=== PATIENT | male | born 1970 | race Two or more races ===

== ENCOUNTER 2017-07-28 06:10 | Day surgery (SDC) | payer MEDICARE, MEDICAID ==
[2017-07-24 11:07] LABS: BASOPHILS % (AUTO) 1.4 % (0.0-2.0); EOSINOPHILS % (AUTO) 4.4 % (0.0-3.0); HEMATOCRIT 39.4 % (42.0-52.0); HEMOGLOBIN 12.8 G/DL (14.2-18.0); MEAN CORPUSCULAR VOLUME 95 FL (80-99); MONOCYTES % (AUTO) 7.7 % (1.0-10.0); NEUTROPHILS % (AUTO) 62.5 % (45.0-75.0); PLATELET COUNT 326 K/UL (150-450); RED BLOOD COUNT 4.16 M/UL (4.70-6.10); WHITE BLOOD COUNT 8.8 K/UL (4.8-10.8)
[2017-07-24 11:26] LABS: ANION GAP 9 mmol/L (5-15); BLOOD UREA NITROGEN 26 mg/dL (7-18); CALCIUM 9.1 MG/DL (8.5-10.1); CARBON DIOXIDE 29 MMOL/L (21-32); CHLORIDE 98 MMOL/L (98-107); CREATININE 9.1 MG/DL (0.55-1.30); POTASSIUM 4.7 MMOL/L (3.5-5.1); SODIUM 136 MMOL/L (136-145)
--- NOTE | 2017-07-24 18:00 | Pre-op HX & Phy Repo 2 SIG ---
DATE OF ADMISSION: 07/28/2017 PRESURGICAL INTERNAL MEDICINE HISTORY AND PHYSICAL DATE OF EVALUATION: 07/24/2017 REASON FOR EVALUATION: I was asked by Dr. Galileo Manzo to see this 47-year-old male who is going for elective surgery on the left eye. The patient has a cataract left eye. Please see History and Physical by Dr. Galileo Manzo, and surgery scheduled for 07/28/2017. The patient is seen in outpatient department of [facility]. PAST MEDICAL HISTORY/REVIEW OF SYSTEMS: Remarkable for history of hypertension, insulin-dependent diabetes mellitus, and end-stage renal disease. The patient is on hemodialysis, one scheduled for tomorrow 07/25/2017. This is second visit to [facility]. He has had a cataract surgery on the right eye in February 2017. Please see old chart. The patient denies history of heart attack, chest pain, or palpitation. No history of respiratory problem. No asthma or bronchitis. Denies history of GI bleeding or heartburn. No liver problem or hepatitis. No history of thyroid problem or anemia. The patient is receiving hemodialysis for one year. PAST SURGICAL HISTORY: Remarkable for right eye cataract surgery in February 2017 and the left arm arteriovenous shunt for dialysis. FAMILY HISTORY: Mother with history of obesity, diabetes mellitus, and hypertension. ALLERGIES: Not known. MEDICATIONS: Humulin 32 units in the morning and Humalog sliding scale. Also patient takes clonidine 0.1 mg and . HABITS: Denies history of smoke. Alcohol occasionally. No street drugs. PHYSICAL EXAMINATION: GENERAL: Alert, well-developed, well-nourished male in his the 40s, no acute distress. VITAL SIGNS: Blood pressure 156/89, temperature 97, pulse 89, respirations 18, and O2 saturation 100% on room air. SKIN: No rashes. Heavy tattoo on chest and back. LYMPHATIC: Lymph nodes not enlarged. No diaphoresis. HEENT: Head, normocephalic. Baldness. Ears, clear. No discharge. Eyes, full description per Dr. Galileo Manzo. Mouth, clear and moist. No dentures. No discharge. No ulcer. NECK: Supple. No jugular vein distention. Carotids artery +2. Trachea midline. CHEST: No deformity or asymmetry. LUNGS: Clear to auscultation and percussion. No rales or rhonchi. HEART: Sinus rhythm. No ectopy. No murmur. No S3, S4. ABDOMEN: Soft, benign. Liver and spleen are not enlarged. No rebound. EXTREMITIES: No peripheral edema. Left forearm AV shunt. No calf tenderness. No varicose vein. ABDOMEN: Soft, benign. Liver and spleen not enlarged. No palpable mass. GENITOURINARY: The patient is on hemodialysis. CVA nontender. NERVOUS SYSTEM: No asymmetry. No tremor. No nystagmus. LABORATORY AND DIAGNOSTIC DATA: Electrocardiogram done today shows a normal sinus rhythm, 86 per minute, normal ECG. The patient advised to be NPO after midnight Friday to Friday. Laboratory done today 07/24/2017 shows red blood cells 4.34 million, hemoglobin 12.3, hematocrit 39.4. Chemistry, sodium 136, potassium of 4.7 chloride 98, CO2 20, blood sugar 126, and calcium 9.3. IMPRESSION: 1. Cataract, left eye. 2. Hypertension. 3. Insulin-dependent diabetes mellitus, controlled. 4. End-stage renal disease, on hemodialysis. 5. Mild anemia. PLAN: Cataract extraction, left eye with intraocular lens implant per Dr. Galileo Manzo on 07/28/2017. CONCLUSION: The patient is a 47-year-old male with multiple medical problems including insulin-dependent diabetes mellitus, hypertension, and end-stage renal disease. The patient will be dialyzed tomorrow, might need to check potassium on the day of surgery. The patient advised to be NPO after midnight Friday. The patient's condition optimized for surgery. Thank you very much, Dr. Manzo, for privilege to participate in presurgical care of this interesting patient. Danni Peng M.D. DR: Connor JOB#: [id number] CC:
--- NOTE | 2017-07-25 10:44 | Pre-Procedure Note/Attestation ---
Pre-Procedure Note/Attestation Complete Prior to Procedure Planned Procedure: left Procedure Narrative: phaco with iol Indications for Procedure Pre-Operative Diagnosis: cataract Attestation I attest that I discussed the nature of the procedure; its benefits; risks and complications; and alternatives (and the risks and benefits of such alternatives ), prior to the procedure, with the patient (or the patient's legal guest service representative). I attest that, if there was a reasonable possibility of needing a blood transfusion, the patient (or the patient's legal guest service representative) was given the [facility] standardized written summary, pursuant to the [place] Blood Safety Act ([place] Health and Safety Code # 1645, as amended). I attest that I re-evaluated the patient just prior to the surgery and that there has been no change in the patient's H&P, except as documented below: EMMANUEL MARIN Jul 25, 2017 10:44
--- NOTE | 2017-07-25 10:46 | Opthalmology H&P ---
Ophthalmology H&P H&P Chief Complaint: decreased vision in left eye HPI Vision Affects Ability to: read, focus/use eyes together, manage personal affairs HPI Narrative blurry vision Exam Visual Acuity: OD: 20/30 OS: 20/200 Tension: OD: 18 Os: 14 Eye Exam: normal OU: external exam, palpebral fissure-width, marginal reflex distance, levator function, corneas, anterior chambers, fundus exam, findings: lens - OD: iol OS: psc Assessment/Plan Diagnosis: (1) Posterior subcapsular cataract, left eye Attestation Attestation The risks and benefits of the surgery as well as alternative procedures were explained to the patient in detail. EMMANUEL MARIN Jul 25, 2017 10:46
[2017-07-28] VITALS (8 sets, daily range): BP systolic 153–163; BP diastolic 84–95
[~2017-07-28] VITALS: Ht 180.3 cm; Wt 99.8 kg
[~2017-07-28 06:10] MED LIST: AMLODIPINE BESY10 MG ORAL; CLONIDINE HCL0.1 MG PO; HUMALOG100 UNIT/4 SUBQ; LANTUS SOL100 UNIT/1 SUBQ; RENVELA800 MG ORAL
[2017-07-28] MEDS ORDERED: Dexamethasone 4mg/ml vial ONE (07:00)
[2017-07-28] MEDS ORDERED: Pred Forte 1% Opth Susp 1ml ONE (07:00)
[2017-07-28] MEDS ORDERED: Sterile Water 10ml Vial ONE (07:00)
[2017-07-28] MEDS ORDERED: Akten 3.5% 1ml Btl LEFT EYE ONE (07:00)
[2017-07-28] MEDS ORDERED: Proparacaine 0.5% Opth Soln 15ml LEFT EYE ONE (07:00)
[2017-07-28] MEDS ORDERED: EPINEPHrine 1mg/1ml Amp ONE (07:00)
[2017-07-28] MEDS ORDERED: Tetracaine 0.5% Opth 4ml Soln LEFT EYE ONE (07:00)
[2017-07-28] MEDS ORDERED: Maxitrol Opth Oint 3.5gm ONE (07:00)
[2017-07-28] MEDS ORDERED: BSS 500ml btl ONE (07:00)
[2017-07-28] MEDS: Cyclopentolate 1% Opth Sol 2ml LEFT EYE SCH ×2 (07:18→07:25)
[2017-07-28] MEDS: Phenylephrine 10% Opth Soln 5ml LEFT EYE SCH ×3 (07:18→07:33)
[2017-07-28] MEDS: Tobramycin Op Soln 0.3% 5ml LEFT EYE SCH ×3 (07:18→07:33)
[2017-07-28] MEDS: Tropicamide 1% Opth 15ml Soln LEFT EYE SCH ×3 (07:19→07:33)
[2017-07-28] MEDS: Ketorolac Tromethamine Opth 5ml Soln LEFT EYE SCH ×3 (07:19→07:33)
[2017-07-28] MEDS ORDERED: LR 1000ml 1,000 ML IVLG SCH (08:15)
[2017-07-28] MEDS ORDERED: fentaNYL 100 mcg/2 mL IV PRN (08:15)
[2017-07-28] MEDS ORDERED: Atropine Inj 1mg/10ml Syr IV PRN (08:15)
[2017-07-28] MEDS ORDERED: HYDROcodone/Acetamin 7.5/325 tab ORAL PRN (08:15)
[2017-07-28] MEDS ORDERED: Labetalol 5mg/ml 20ml vial IV PRN (08:15)
[2017-07-28] MEDS ORDERED: Hydromorphone 0.5mg/0.5ml inj IVP PRN (08:15)
[2017-07-28] MEDS ORDERED: oxyCODONE HCL/Acetaminophen 5/325mg ORAL PRN (08:15)
[2017-07-28] MEDS ORDERED: DiphenhydrAMINE 50mg/ml Inj IVP PRN (08:15)
[2017-07-28] MEDS ORDERED: Midazolam 2mg/2ml Inj IVP PRN (08:15)
[2017-07-28] MEDS ORDERED: Norco 5mg/325mg tab ORAL PRN (08:15)
[2017-07-28] MEDS ORDERED: Ketorolac 30mg Inj IV PRN ×2 (08:15)
[2017-07-28] MEDS ORDERED: LORazepam Inj 2mg/ml 1ml IV PRN (08:15)
--- NOTE | 2017-07-28 08:15 | Anethesia Preoperative Eval ---
Anesthesia Pre-op PMH/ROS General Date of Evaluation: Jul 28, 2017 Time of Evaluation: 08:27 Anesthesiologist: Quentin ASA Score: ASA 3 Mallampati Score Class I : Soft palate, uvula, fauces, pillars visible Class II: Soft palate, uvula, fauces visible Class III: Soft palate, base of uvula visible Class IV: Only hard plate visible Mallampati Classification: Class II Surgeon: Anais Diagnosis: Cataract OS Surgical Procedure: Cat Ext IOL OS Anesthesia History: none Family History: no anesthesia problems Allergies: Coded Allergies: No Known Allergies (Unverified , 07/24/17) Medications: see eMAR Past Medical History Cardiovascular: Reports: HTN Gastrointestinal/Genitourinary: Reports: ESRD Endocrine: Reports: DM HEENT: Reports: cataract (L), cataract (R) Anesthesia Pre-op Phys. Exam Physician Exam Last Vital Signs Date Time Temp Pulse Resp B/P (MAP) Pulse Ox O2 Delivery O2 Flow Rate FiO2 07/28/17 07:11 98.2 86 18 153/85 96 Room Air 98.2 Constitutional: NAD Neurologic: CN 2-12 intact Cardiovascular: RRR Respiratory: CTA Gastrointestinal: S/NT/ND Airway Exam Mallampati Score: Class II MO: full ROM: limited Teeth: intact Anesthesia Pre-op A/P Labs Chemistry Test 07/28/17 07:40 Potassium Level Pending Risk Assessment & Plan Assessment: ASA 3 Plan: GA Status Change Before Surgery: No Angelito Saavedra MD Jul 28, 2017 08:15
[2017-07-28] MEDS ORDERED: Midazolam 2mg/2ml Inj ONE (08:30)
[2017-07-28] MEDS ORDERED: LR 1000ml ONE (08:30)
[2017-07-28] MEDS ORDERED: NS Irrig 1000ml ONE (08:30)
[2017-07-28] MEDS ORDERED: Lidocaine 1% MPF 10mg/ml 5ml ONE (08:30)
[2017-07-28] MEDS ORDERED: Propofol 200mg/20ml IV ONE (08:30)
[2017-07-28] MEDS ORDERED: Sterile Water Irrig 1000ml IRRIG ONE (08:30)
--- NOTE | 2017-07-28 08:41 | Immediate Post-Op Evaluation ---
Immediate Post-Op Evalulation Immediate Post-Op Evalulation Procedure: Cat Ext IOL OS Date of Evaluation: Jul 28, 2017 Time of Evaluation: 09:22 IV Fluids: 200 NS Blood Products: 0 Estimated Blood Loss: 1 Urinary Output: 0 Blood Pressure Systolic: 158 Blood Pressure Diastolic: 92 Pulse Rate: 86 Respiratory Rate: 16 O2 Sat by Pulse Oximetry: 97 Temperature (Fahrenheit): 97.6 Pain Score (1-10): 1 Nausea: No Vomiting: No Complications 0 Patient Status: awake, reacts, patent, none Hydration Status: adequate Angelito Saavedra MD Jul 28, 2017 08:41
--- NOTE | 2017-07-28 08:42 | 48 Hour Post Anesthesia Eval ---
Post Anesthesia Evaluation Procedure: Cat Ext IOL OS Date of Evaluation: Jul 28, 2017 Time of Evaluation: 11:34 Blood Pressure Systolic: 151 0: 86 Pulse Rate: 83 Respiratory Rate: 18 Temperature (Fahrenheit): 98.2 O2 Sat by Pulse Oximetry: 97 Airway: patent Nausea: No Vomiting: No Pain Intensity: 1 Hydration Status: adequate Cardiopulmonary Status: Stable Mental Status/LOC: patient returned to baseline Follow-up Care/Observations: 0 Post-Anesthesia Complications: 0 Follow-up care needed: ready to discharge Angelito Saavedra MD Jul 28, 2017 08:42
[2017-07-28] MEDS ORDERED: BSS 15ml BTL ONE (09:20)
[2017-07-28] MEDS ORDERED: Sodium Hyaluronate 14 mg/ml 0.85ml ONE (09:22)
[2017-07-28] MEDS ORDERED: Povidone-Iodine 5% opth solution ONE (09:22)
[2017-07-28] MEDS ORDERED: Pilocarpine 2% Opth 15ml Soln ONE (09:22)
--- NOTE | 2017-07-29 09:22 | Brief Operative Note ---
Immediate Post Operative Note Operative Note Chief Complaint: Blurry Vision Left Eye Pre-op Diagnosis: cataract Procedure: Phaco with IOL Implant Left Eye Post-op Diagnosis: Pseudophakia Left Eye Post-op Diagnosis: same as pre-op Findings: consistent w/pre-op dx studies Surgeon: Emmanuel Marin Anesthesiologist: Angelito Saavedra Anesthesia: MAC Specimen: none Complications: none Condition: stable Fluids: LR Estimated Blood Loss: none Drains: none Implant(s) used?: Yes EMMANUEL MARIN Jul 29, 2017 09:22
--- NOTE | 2017-07-29 09:25 | Operative Note - PDOC ---
Operative Note Operative Note Date of Operation/Procedure: Jul 28, 2017 Chief Complaint: Blurry Vision Left Eye Pre-op Diagnosis: cataract Procedure: Phaco with IOL Implant Left Eye Post-op Diagnosis: Pseudophakia Left Eye Post-op Diagnosis: same as pre-op Operative Findings: consistent w/pre-op dx studies Surgeon: Emmanuel Marin Anesthesiologist: Angelito Saavedra Anesthesia: MAC Specimen: none Complications: none Condition: stable Fluids: LR Estimated Blood Loss: none Drains: none Implant(s) used?: Yes Indications for Procedure Cataract Left Eye Description of Procedure PATIENT: ATT. PHYS: EMMANUEL MARIN M.D. SURGEON: EMMANUEL MARIN M.D. ADMIT DATE: REPORT OF OPERATION Page 2 of 2 This patient has been complaining visually significant cataract in the affected eye with the best corrected visual acuity under moderate glare conditions worse. The patient complains of difficulties with glare in performing activities of daily living and wants to manage personal affairs with comfort and accuracy and see well enough to move with safety at home and outdoors. The risks, benefits and alternatives of the procedure were discussed with the patient in the office prior to scheduling surgery. All questions from the patient were answered after the surgical procedure was explained in detail. The risks of the procedure as explained to the patient include, but are not limited to, pain, infection, bleeding, loss of vision, retinal detachment, need for further surgery, loss of lens nucleus, double vision, etc. Alternative procedures were discussed which include, to do nothing or seek a second opinion. Informed consent for this procedure was obtained from the patient. The patient was referred to a primary care physician for a cardiopulmonary clearance prior to surgery, after proper evaluation was done patient was properly scheduled for outpatient surgery. The patient was brought to the operating room where the anesthesiologist established I.V. lines and cardiac monitoring leads. Mild intravenous sedation was administered. The patient was then prepared with a 5% solution of povidone -iodine to the conjunctival fornix and lashes, and a 5% solution of povidone- iodine to the lids and periorbital skin. The patient was then draped in the usual sterile fashion. A lid speculum was then placed in the operative eye. A keratome blade was then used to create a biplanar incision into the anterior chamber. Viscoelastics was then instilled into the anterior chamber. A capsulorrhexis was then fashioned with an utrata forceps followed by a BSS and a cannula were then used to hydrodissect and hydro delineate the lens. Paracentesis incision was made at 3 o'clock with sharp blade. The phacoemulsification unit, after being properly adjusted and tested, was then used to emulsify the nucleus. Residual cortical material was aspirated with the irrigation and aspiration unit. Healon was then instilled into the anterior chamber. The corneal wound was then enlarged to the size of the optic with the joann keratome blade. The intraocular lens was then inspected for right power and size and thought to be satisfactory. Then the lens was gently placed in the capsular bag. Positioning within the capsular bag was confirmed by direct visualization. Optic centration was accomplished with a Sinskey hook. Viscoelastics was removed from the anterior chamber using the irrigation and aspiration unit. The corneal wound was then tested for leaks and none were found. The lid speculum were then removed. Sponge and needle counts were correct. An eye patch and shield were placed over the operative eye. The patient was taken to the recovery room in stable condition. There were no complications. The patient tolerated the procedure well. The patient was then transferred to the ambulatory surgery unit in stable and satisfactory condition , was given detailed written instructions and asked to follow up in the office the next day. EMMANUEL MARIN M.D. EMMANUEL MARIN Jul 29, 2017 09:25
--- NOTE | 2017-08-06 17:02 | Cardiology Report ---
APPROVED REPORT EKG Measurement Heart [id number] Normal sinus rhythm Normal ECG
== END 2017-07-28 10:30 | disposition home or self-care (01) ==
LOC: SUR 06:10
DX: H25.042 Posterior subcapsular polar age-related cataract, left eye (principal); I12.0 Hypertensive chronic kidney disease with stage 5 chronic kidney disease or end stage renal disease; E11.22 Type 2 diabetes mellitus with diabetic chronic kidney disease; N18.6 End stage renal disease; Z99.2 Dependence on renal dialysis; D64.9 Anemia, unspecified; Z79.4 Long term (current) use of insulin; Z83.3 Family history of diabetes mellitus; Z82.49 Family history of ischemic heart disease and other diseases of the circulatory system
CPT/HCPCS: 36415; 66984; 80048; 82962; 84132; 85025; 93005; J0171; J1100; J2250; J2704; J3370; J7120; V2632; 94003; 94150; A4216

== ENCOUNTER 2019-07-06 13:52 | Outpatient (RCR) | payer MEDICARE, MEDICAID | END 2019-07-24 | disposition home or self-care (01) | LOC: WCC 13:52 | DX: E11.621 Type 2 diabetes mellitus with foot ulcer (principal); E11.42 Type 2 diabetes mellitus with diabetic polyneuropathy; N18.6 End stage renal disease; Z89.421 Acquired absence of other right toe(s); M86.171 Other acute osteomyelitis, right ankle and foot; Z89.422 Acquired absence of other left toe(s); E11.65 Type 2 diabetes mellitus with hyperglycemia; I12.0 Hypertensive chronic kidney disease with stage 5 chronic kidney disease or end stage renal disease; E08.22 Diabetes mellitus due to underlying condition with diabetic chronic kidney disease | CPT/HCPCS: 11043 ==

== ENCOUNTER 2019-08-03 13:28 | Outpatient (RCR) | payer MEDICARE, MEDICAID | END 2019-08-24 | disposition home or self-care (01) | LOC: WCC 13:28 | DX: E11.621 Type 2 diabetes mellitus with foot ulcer (principal); E11.42 Type 2 diabetes mellitus with diabetic polyneuropathy; N18.6 End stage renal disease; Z89.421 Acquired absence of other right toe(s); M86.171 Other acute osteomyelitis, right ankle and foot; Z89.422 Acquired absence of other left toe(s); E11.65 Type 2 diabetes mellitus with hyperglycemia; I12.0 Hypertensive chronic kidney disease with stage 5 chronic kidney disease or end stage renal disease; E11.22 Type 2 diabetes mellitus with diabetic chronic kidney disease; Z99.2 Dependence on renal dialysis | CPT/HCPCS: 11043 ==

== ENCOUNTER 2019-09-28 13:19 | Outpatient (RCR) | payer MEDICARE, MEDICAID | END 2019-10-24 | disposition home or self-care (01) | LOC: WCC 13:19 | DX: E11.621 Type 2 diabetes mellitus with foot ulcer (principal); E11.42 Type 2 diabetes mellitus with diabetic polyneuropathy; N18.6 End stage renal disease; Z89.421 Acquired absence of other right toe(s); M86.171 Other acute osteomyelitis, right ankle and foot; Z89.422 Acquired absence of other left toe(s); E11.65 Type 2 diabetes mellitus with hyperglycemia; I12.0 Hypertensive chronic kidney disease with stage 5 chronic kidney disease or end stage renal disease; E11.22 Type 2 diabetes mellitus with diabetic chronic kidney disease; Z99.2 Dependence on renal dialysis | CPT/HCPCS: 11043; 11046; 87070; 87181; 87205; G0463 ==

== ENCOUNTER → 2019-10-14 | Outpatient (CLI) | payer MEDICARE, MEDICAID ==
--- NOTE | 2019-10-14 14:20 | Diagnostic Imaging Report ---
EXAM: MRI MRI Right Foot WO Contrast HISTORY: Foot pain with large open seeping wound on plantar aspect. Status post amputation. Evaluate for osteomyelitis. COMPARISON: No prior studies available for comparison. TECHNIQUE: MR examination of the hindfoot/ankle includes sagittal T1 and STIR, coronal T1 and STIR as well as axial proton density fat-suppressed T2 and STIR sequences. FINDINGS: Patient is status post transmetatarsal amputation across the bases of the metatarsals. In the remaining bony structures, there is abnormal marrow signal identified in the residual stumps of the second through fifth metatarsals. There is also abnormal marrow signal identified in the tarsal bones including the 1st-3rd cuneiforms, the cuboid and the navicular bone. In addition, there is also abnormal marrow signal noted in the anterior process of the calcaneus. These areas of signal alteration or masses in both T1 and STIR sequences consistent with multiple areas of osteomyelitis. Soft tissue edema identified at the distal stump. There is open wound noted along the plantar aspect. No organized soft tissue fluid collection or abscess seen presently however. Soft tissue edema extends along the medial and lateral margins to the ankle region. Ankle mortise and subtalar joints are grossly anatomic. IMPRESSION: OPEN WOUND IN THE PLANTAR ASPECT OF THE MIDFOOT AND HINDFOOT REGION WITH ADJACENT SOFT TISSUE EDEMA BUT NO FOCAL SOFT TISSUE FLUID COLLECTION OR ABSCESS. ABNORMAL MARROW SIGNAL IDENTIFIED IN THE RESIDUAL METATARSAL BASES, TARSAL BONES WELL IN THE ANTERIOR PROCESS OF THE CALCANEUS REPRESENTING MULTIFOCAL OSTEOMYELITIS.
== END | disposition home or self-care (01) ==
LOC: MRI 12:59
DX: S91.301A Unspecified open wound, right foot, initial encounter (principal); X58.XXXA Exposure to other specified factors, initial encounter; Y92.9 Unspecified place or not applicable; M86.9 Osteomyelitis, unspecified

== ENCOUNTER 2019-10-26 13:09 | Outpatient (RCR) | payer MEDICARE, MEDICAID | END 2019-11-23 | disposition home or self-care (01) | LOC: WCC 13:09 | DX: E11.621 Type 2 diabetes mellitus with foot ulcer (principal); E11.42 Type 2 diabetes mellitus with diabetic polyneuropathy; N18.6 End stage renal disease; Z89.421 Acquired absence of other right toe(s); M86.171 Other acute osteomyelitis, right ankle and foot; Z89.422 Acquired absence of other left toe(s); E11.65 Type 2 diabetes mellitus with hyperglycemia; I12.0 Hypertensive chronic kidney disease with stage 5 chronic kidney disease or end stage renal disease; E11.22 Type 2 diabetes mellitus with diabetic chronic kidney disease; Z99.2 Dependence on renal dialysis | CPT/HCPCS: 11043; 87070; 87181; 87205 ==

== ENCOUNTER → 2019-10-27 | Outpatient (CLI) | payer MEDICARE, MEDICAID ==
[2019-10-27 10:20] LABS: HEMATOCRIT 37.4 % (42.0-52.0); HEMOGLOBIN 12.7 G/DL (14.2-18.0); MEAN CORPUSCULAR VOLUME 86 FL (80-99); PLATELET COUNT 276 K/UL (150-450); RED BLOOD COUNT 4.33 M/UL (4.70-6.10); RED CELL DISTRIBUTION WIDTH 12.2 % (11.6-14.8); WHITE BLOOD COUNT 7.2 K/UL (4.8-10.8)
[2019-10-27 10:35] LABS: ANION GAP 6 mmol/L (5-15); BLOOD UREA NITROGEN 13 mg/dL (7-18); CALCIUM 8.7 MG/DL (8.5-10.1); CARBON DIOXIDE 34 MMOL/L (21-32); CHLORIDE 90 MMOL/L (98-107); CREATININE 5.3 MG/DL (0.55-1.30); POTASSIUM 3.9 MMOL/L (3.5-5.1); SODIUM 130 MMOL/L (136-145)
--- NOTE | 2019-10-27 12:03 | Diagnostic Imaging Report ---
Indication: Reason For Exam: ABSCESS Technique: Grayscale and duplex images of the right lower extremity veins Comparison: none Findings: On the right, incompletely occlusive thrombus is seen within the femoral vein, resulting in incomplete compressibility but no significant diminution of flow. The remainder of the venous segments demonstrate normal appearance on color Doppler, no evidence of intraluminal thrombus, and normal phasic Doppler waveforms. Normal augmentation response is noted in the popliteal vein. Normal compressibility. The right greater saphenous vein demonstrates considerable reflux throughout. Impression: Nonocclusive thrombus within the right femoral vein, likely chronic No definite acute deep venous thrombosis Extensive reflux in the right greater saphenous vein
== END | disposition home or self-care (01) ==
LOC: ULS 09:47
DX: L02.611 Cutaneous abscess of right foot (principal); I82.411 Acute embolism and thrombosis of right femoral vein
CPT/HCPCS: 36415; 80048; 85007; 85025; 85651; 86140; 93971

== ENCOUNTER 2019-11-30 13:26 | Outpatient (RCR) | payer MEDICARE, MEDICAID | END 2019-12-24 | disposition home or self-care (01) | LOC: WCC 13:26 | DX: E11.621 Type 2 diabetes mellitus with foot ulcer (principal); E11.42 Type 2 diabetes mellitus with diabetic polyneuropathy; N18.6 End stage renal disease; Z89.421 Acquired absence of other right toe(s); M86.171 Other acute osteomyelitis, right ankle and foot; Z89.422 Acquired absence of other left toe(s); E11.65 Type 2 diabetes mellitus with hyperglycemia; I12.0 Hypertensive chronic kidney disease with stage 5 chronic kidney disease or end stage renal disease; E11.22 Type 2 diabetes mellitus with diabetic chronic kidney disease; Z99.2 Dependence on renal dialysis | CPT/HCPCS: 11043 ==

== ENCOUNTER 2019-12-28 13:27 | Outpatient (RCR) | payer MEDICARE, MEDICAID | END 2020-01-24 | disposition home or self-care (01) | LOC: WCC 13:27 | DX: E11.621 Type 2 diabetes mellitus with foot ulcer (principal); E11.42 Type 2 diabetes mellitus with diabetic polyneuropathy; N18.6 End stage renal disease; Z89.421 Acquired absence of other right toe(s); M86.171 Other acute osteomyelitis, right ankle and foot; Z89.422 Acquired absence of other left toe(s); E11.65 Type 2 diabetes mellitus with hyperglycemia; I12.0 Hypertensive chronic kidney disease with stage 5 chronic kidney disease or end stage renal disease; E11.22 Type 2 diabetes mellitus with diabetic chronic kidney disease; Z99.2 Dependence on renal dialysis | CPT/HCPCS: 11043; 15275; Q4132 ==

== ENCOUNTER 2020-01-25 11:01 | Outpatient (RCR) | payer MEDICARE, MEDICAID | END 2020-02-23 | disposition home or self-care (01) | LOC: WCC 11:01 | DX: E11.621 Type 2 diabetes mellitus with foot ulcer (principal); E11.42 Type 2 diabetes mellitus with diabetic polyneuropathy; N18.6 End stage renal disease; Z89.421 Acquired absence of other right toe(s); M86.171 Other acute osteomyelitis, right ankle and foot; Z89.422 Acquired absence of other left toe(s); E11.65 Type 2 diabetes mellitus with hyperglycemia; I12.0 Hypertensive chronic kidney disease with stage 5 chronic kidney disease or end stage renal disease; E11.22 Type 2 diabetes mellitus with diabetic chronic kidney disease; Z99.2 Dependence on renal dialysis | CPT/HCPCS: 11043; 15275; Q4133 ==

== ENCOUNTER 2020-03-07 13:19 | Outpatient (RCR) | payer MEDICARE, MEDICAID | END 2020-03-25 | disposition home or self-care (01) | LOC: WCC 13:19 | DX: E11.621 Type 2 diabetes mellitus with foot ulcer (principal); E11.42 Type 2 diabetes mellitus with diabetic polyneuropathy; N18.6 End stage renal disease; Z89.421 Acquired absence of other right toe(s); M86.171 Other acute osteomyelitis, right ankle and foot; Z89.422 Acquired absence of other left toe(s); E11.65 Type 2 diabetes mellitus with hyperglycemia; I12.0 Hypertensive chronic kidney disease with stage 5 chronic kidney disease or end stage renal disease; E11.22 Type 2 diabetes mellitus with diabetic chronic kidney disease; Z99.2 Dependence on renal dialysis | CPT/HCPCS: 11043; G0463 ==

== ENCOUNTER → 2020-03-09 | Outpatient (CLI) | payer MEDICARE, MEDICAID ==
--- NOTE | 2020-03-09 15:30 | Diagnostic Imaging Report ---
Indication: Chronic open wound on plantar surface of the right foot Technique: Sagittal, axial, and coronal T1 FSE and FSE STIR images obtained of the hindfoot Comparison: 10/14/2019 Findings: A marker gonzalez a superficial ulcer on the plantar surface of the foot anteriorly. There is considerable soft tissue edema in this area. There is evidence of prior amputation, at the level of the proximal metatarsal shafts of the second through fifth toes, and at the first tarsometatarsal joint of the first toe.. Some gas bubbles are seen within the soft tissues of the stump, particularly laterally. Increased STIR signal is seen within the medial cuneiform. This demonstrates associated decreased T1 signal. Increased T2 signal is seen in the navicular, likewise with associated decreased T1 signal. There is some increased STIR signal within the middle cuneiform with questionable decreased T1 signal. There is increased STIR signal within the second metatarsal stump, likewise with equivocal decreased T1 signal. There is increased T2 and decreased T1 signal involving the lateral cuneiform. There is increased STIR signal within the third metatarsal stump with suggestion of slight decreased T1 signal. There is increased STIR signal within the fourth metatarsal stump with corresponding decreased T1 signal. No definite signal abnormality of the fifth metatarsal stump is demonstrated. However, there is increased STIR signal in the anterior cuboid with corresponding T1 signal abnormality. There is increased STIR signal involving the lateral aspect of the calcaneus with some associated T1 signal abnormality. The talus, distal fibula, and tibia appear unremarkable. In addition to the edema of the soft tissues of the stomach, there is some dorsal and plantar soft tissue edema. The visualized large tendons are grossly unremarkable. When compared to the prior exam, the above described marrow signal abnormalities are overall somewhat less striking than on the prior study. Impression: Evidence of ongoing multifocal osteomyelitis, with signal abnormalities of the metatarsal stumps and the tarsal bones as described, as well as the calcaneus. Signal abnormalities are somewhat less striking than always demonstrated on the prior exam, so there may have been some interim improvement Extensive soft tissue abnormality, as described. Areas of signal void could indicate soft tissue gas and raises possibility of infection with a gas-forming organism. No organized fluid collection to suggest abscess
== END | disposition home or self-care (01) ==
LOC: MRI 09:45
DX: S91.301A Unspecified open wound, right foot, initial encounter (principal); X58.XXXA Exposure to other specified factors, initial encounter; Y92.9 Unspecified place or not applicable; M86.9 Osteomyelitis, unspecified

== ENCOUNTER 2020-04-18 13:09 | Outpatient (RCR) | payer MEDICARE, MEDICAID | END 2020-04-24 | disposition home or self-care (01) | LOC: WCC 13:09 | DX: E11.621 Type 2 diabetes mellitus with foot ulcer (principal); E11.42 Type 2 diabetes mellitus with diabetic polyneuropathy; N18.6 End stage renal disease; Z89.421 Acquired absence of other right toe(s); M86.171 Other acute osteomyelitis, right ankle and foot; Z89.422 Acquired absence of other left toe(s); E11.65 Type 2 diabetes mellitus with hyperglycemia; I12.0 Hypertensive chronic kidney disease with stage 5 chronic kidney disease or end stage renal disease; E11.22 Type 2 diabetes mellitus with diabetic chronic kidney disease; Z99.2 Dependence on renal dialysis | CPT/HCPCS: 11043; 11046; 87070; 87181; 87205 ==

== ENCOUNTER 2020-05-02 13:16 | Outpatient (RCR) | payer MEDICARE, MEDICAID | END 2020-05-25 | disposition home or self-care (01) | LOC: WCC 13:16 | DX: E11.621 Type 2 diabetes mellitus with foot ulcer (principal); L97.515 Non-pressure chronic ulcer of other part of right foot with muscle involvement without evidence of necrosis; E11.42 Type 2 diabetes mellitus with diabetic polyneuropathy; N18.6 End stage renal disease; Z89.421 Acquired absence of other right toe(s); M86.171 Other acute osteomyelitis, right ankle and foot; Z89.422 Acquired absence of other left toe(s); E11.65 Type 2 diabetes mellitus with hyperglycemia; I12.0 Hypertensive chronic kidney disease with stage 5 chronic kidney disease or end stage renal disease; E11.22 Type 2 diabetes mellitus with diabetic chronic kidney disease; Z99.2 Dependence on renal dialysis | CPT/HCPCS: 11043; 15275; 97605; Q4133 ==

== ENCOUNTER 2020-05-30 11:57 | Outpatient (RCR) | payer MEDICARE, MEDICAID | END 2020-06-25 | disposition home or self-care (01) | LOC: WCC 11:57 | DX: E11.621 Type 2 diabetes mellitus with foot ulcer (principal); E11.42 Type 2 diabetes mellitus with diabetic polyneuropathy; N18.6 End stage renal disease; Z89.421 Acquired absence of other right toe(s); M86.171 Other acute osteomyelitis, right ankle and foot; Z89.422 Acquired absence of other left toe(s); E11.65 Type 2 diabetes mellitus with hyperglycemia; I12.0 Hypertensive chronic kidney disease with stage 5 chronic kidney disease or end stage renal disease; E11.22 Type 2 diabetes mellitus with diabetic chronic kidney disease; Z99.2 Dependence on renal dialysis; L97.515 Non-pressure chronic ulcer of other part of right foot with muscle involvement without evidence of necrosis | CPT/HCPCS: 11043; 15275; 97605; Q4133 ==

== ENCOUNTER 2020-06-27 12:19 | Outpatient (RCR) | payer MEDICARE, MEDICAID | END 2020-07-23 | disposition home or self-care (01) | LOC: WCC 12:19 | DX: E11.621 Type 2 diabetes mellitus with foot ulcer (principal); E11.42 Type 2 diabetes mellitus with diabetic polyneuropathy; N18.6 End stage renal disease; Z89.421 Acquired absence of other right toe(s); M86.171 Other acute osteomyelitis, right ankle and foot; Z89.422 Acquired absence of other left toe(s); E11.65 Type 2 diabetes mellitus with hyperglycemia; I12.0 Hypertensive chronic kidney disease with stage 5 chronic kidney disease or end stage renal disease; E11.22 Type 2 diabetes mellitus with diabetic chronic kidney disease; Z99.2 Dependence on renal dialysis; L97.515 Non-pressure chronic ulcer of other part of right foot with muscle involvement without evidence of necrosis | CPT/HCPCS: 11043; 97605 ==